=== PATIENT | male | born 1990 | race Caucasian/White ===

== ENCOUNTER 2024-02-27 15:19 | Emergency (ER) | payer MEDICAID, SELFPAY ==
--- NOTE | 2024-02-27 15:33 | EKG_ITS ---
[facility] Test Date: 2024-02-27 Pat Name: AQUILINO DOSHI Department: Room: - Gender: Male Manager Special Events: : 1990 Requested By: Lion Boyd Order Number: [id number] Reading MD: Lion Boyd Measurements Intervals [place] Rate: 90 P: 56 [place]: 172 QRS: 14 QRSD: 82 T: 22 QT: 347 QTc: 426 Interpretive Statements SINUS RHYTHM WITH SINUS ARRHYTHMIA MINIMAL VOLTAGE CRITERIA FOR LVH, CONSIDER NORMAL VARIANT [MEETS CRITERIA IN ONE OF: R(aVL), S(V1), R(V5), R(V5/V6)+S(V1)] No previous ECG available for comparison /store/S0/[id number]/ecg/[id number].pdf
[2024-02-27 15:36] VITALS: BMI 24.4
--- NOTE | 2024-02-27 15:39 | EDNOTE_ITS ---
ED General RME/HPI General Chief complaint: Syncope / Near Syncope Stated complaint: SYNCOPE Time Seen by Provider: 02/27/24 15:32 Arrival date/time: 02/27/24 15:19 CC: Syncope resulting in left wrist pain HPI patient was visiting family member upstairs in the hospital and does not recall what was happening after speaking to his mother on the phone. Hospital staff report the patient complete syncopal event. Patient is currently awake, stating that he is tired . Complaining of left wrist pain. Patient states he has no significant history no allergies other than Tylenol surgeries include appendectomy and tonsillectomy. Related Data Previous Rx's ?Medication ?Instructions ?Recorded tramadol 50 mg tablet (Ultram) 1 - 2 tab PO Q6HR PRN moderate 07/10/16 pain #15 tabs Allergies Allergy/AdvReac Type Severity Reaction Status Date / Time acetaminophen Allergy Unknown EYE Unverified 07/10/16 12:55 IRRITATION/ SWELLING aspirin Allergy Unknown EYES SWELL Unverified 07/10/16 12:55 ibuprofen Allergy Unknown Verified 07/10/16 12:55 Review of Systems Review of Systems Narrative Review of Systems: GEN: No fever, no chills, no weight loss EYES: No discharge, no visual changes, no pain HEENT: No ear pain, no congestion, no sore throat PULM: No shortness of breath, no cough, no congestion CV: No chest pain, no dyspnea on exertion, no palpitations GI: No nausea, no vomiting, no diarrhea, no pain, no constipation : No frequency, no urgency, no dysuria MUSC/SKEL: No joint pain, no back pain SKIN: No rash PSYCH: No hallucinations, no depression HEME/LYMPH: No easy bleeding or bruising tendencies NEURO: + weakness, no headache Past Medical History Social History SMOKING STATUS: Never smoker ED Exam Narrative Physical exam: [General: Not in any acute distress Head normocephalic HEENT: Eyes: Pupils are PERRLA EOMs are intact no injected conjunctiva mouth pink moist membranes uvula is midline swallow symmetrical all other subsystems of ATTR within acceptable limits Neck is supple nontender, no JVD no edema Chest equal chest rise nontender to palpation Respiratory: Clear to auscultation no wheezes crackles or rubs CV: Rate rhythm is regular no murmurs rubs or clicks Abdomen is soft nontender no masses positive bowel sounds all 4 quadrants Back: No CVA tenderness no spinous process tenderness from cervical spine thoracic and lumbar spine Skin: Intact no petechiae rash induration ulceration or crepitus Extremities: Left wrist: Full range of motion flexion extension with pain no significant edema gross abnormalities cap refill the digits less than 2 seconds. Moving all extremity against resistance cap refill less than 2 seconds neurosensory intact Neuro: Awake alert oriented x3 Glascow coma 15 no focal deficits] Course Quality Measures none Orders Category Date Time Status EKG (ED ONLY) *Do not use* NOW Care 02/27/24 15:33 Completed EKG (ED Only) Stat Exams 02/27/24 15:33 Draft XR wrist comp LT min 3V Stat Exams 02/27/24 16:31 Ordered CBC Stat Lab 02/27/24 15:45 Completed CMP [Comprehensive Metabolic Panel] Stat Lab 02/27/24 15:45 Completed KCL 10% Liq UDC 15 ML Med 02/27/24 16:31 Discontinued 40 meq GT X1 ONE MDM Patient data External records reviewed:: [facility] previous records Clinical information provided by:: patient Social determinants that could affect healthcare access:: none Patient has the following chronic illnesses:: None How is presenting disease/condition affected by chronic disease/condition?: u neffected by Evaluation data The following diagnostics were reviewed and interpreted by me:: lab results Lab and/or radiology exams considered but not ordered:: EKG performed at 1544 shows a ventricular rate of 90 HI interval 172 QRS of 82 QTc of 395 sinus rhythm. CBC shows no acute leukocytosis anemia thrombocytopenia CMP shows no acute electrolyte imbalances renal impairment transaminitis or T. bili elevation X-ray of the wrist as interpreted by me shows there is no acute fracture malalignment or dislocation Interpretation Summary: I suspect a vasovagal response. Patient be discharged home currently he is awake alert oriented with no specific complaints. Medications Medications considered but not ordered:: None Medication administrations:: Medication Administration History Discontinued Medications Potassium Chloride (Potassium Chloride 10% 20 Meq/15 Ml Udc) 40 meq GT X1 ONE Stop: 02/27/24 16:32 None Consultations Consultation(s) initiated? (list below): No Diagnosis Differential Diagnosis ED Complaint MDM: Vasovagal syncope wrist fracture electrolyte imbalance Most likely diagnosis given after review of the tests above:: Vasovagal syncope Admission Indicated Admission indicated?: not indicated Explain why admission is indicated or not indicated:: Stable for outpatient follow-up Admission Request Was there a request for admission?: No Disposition Plan Disposition Plan: Discharge Discharge Attestation Discharge Attestation: The patient and all family members were given an opportunity to ask questions and understood the discharge instructions. Discharge instructions specifically effects, indications for sooner follow up or return to the emergency department, and the expected course of current diagnosis. Patient condition: Stable Medical Decision Making Differential Diagnosis Differential Diagnosis: Vasovagal syncope wrist fracture electrolyte imbalance Lab Data 02/27/24 15:45 02/27/24 15:45 Labs: Lab Results 02/27/24 Range/Units 15:45 WBC 7.5 (3.8-10.6) Thou/mm3 RBC 5.92 H (4.50-5.90) Miln/mm3 Hgb 17.1 H (13.5-16.0) g/dL Hct 47.9 (41.0-53.0) % MCV 81 (80-100) fL MCH 28.9 (25.0-35.0) pg MCHC 35.7 (31.0-37.0) g/dl RDW Std Deviation 36.1 (35.1-43.9) fL Plt Count 208 (140-440) Thou/mm3 Neut % (Auto) 53 (37-80) % Lymph % (Auto) 39 (10-50) % [place] % (Auto) 6 (0-12) % Eos % (Auto) 1 (0-10) % Baso % (Auto) 0 (0-2.5) % Neut # (Auto) 4.0 (1.8-7.7) Thou/mm3 Lymph # (Auto) 2.9 (1.0-4.8) Thou/mm3 [place] # (Auto) 0.5 (0.0-0.8) Thou/mm3 Eos # (Auto) 0.1 (0.0-0.5) Thou/mm3 Baso # (Auto) 0.0 (0.0-0.2) Thou/mm3 Immature Gran # (Auto) 0.02 H (0.00-0.00) Thou/mm3 Absolute Nucleated RBC 0.00 (0.00-0.00) Thou/mm3 Immature Gran % 0 (0-0) % Nucleated RBC % 0 (0) /100 WBC Sodium 136 (136-145) mMol/L Potassium 3.3 L (3.4-5.1) mMol/L Chloride 102 (98-107) mMol/L Carbon Dioxide 24.6 (20.0-31.0) mMol/L Anion Gap 9 (7-16) BUN 11 (9-23) mg/dL Creatinine 1.1 (0.6-1.3) mg/dL Estim Creat Clear Calc 103.9 (>60) mL/min eGFR > 60 (60 - ) See Note BUN/Creatinine Ratio 10 L (12-20) Ratio Glucose 101 (74-106) mg/dL Calculated Osmolality 271 L (275-295) Calcium 10.4 (8.3-10.6) mg/dL Corrected Calcium 10.4 H (8.5-10.1) mg/dL Total Bilirubin 1.2 (0.3-1.2) mg/dL AST 25 (0-34) U/L ALT 30 (10-49) U/L Alkaline Phosphatase 125 H (46-116) U/L Total Protein 7.9 (5.7-8.2) gm/dL Albumin 5.0 (3.5-5.0) gm/dL Globulin 2.9 (2.3-3.5) gm/dL Albumin/Globulin Ratio 1.7 (1.2-2.2) Discharge Plan Plan Patient Disposition: HOME (Self Care) Patient condition on transfer: Stable Prescriptions/Referrals Prescriptions/Med Rec: No Action tramadol [Ultram] 50 MG tablet 1 - 2 tab PO Q6HR PRN (Reason: moderate pain) Qty: 15 0RF Rx Instructions: FOR PAIN, NOT TO EXCEED 8 TABS IN 24 HRS Problem List Clinical Impression: Syncope, vasovagal Patient/Caregiver Discharge Instructions Education Materials: ED Fainting, Vagal Reaction Additional Instructions: Rest drink plenty of fluids follow-up with your primary care provider. Print Language: Italian Stand Alone Forms: Niya Award Info., Patient Portal Info Letter, Work/School Release PA/SUPPLIER ENGINEER Supervising Physician PA/SUPPLIER ENGINEER Supervising Physician: Lewis Graves ENP
[2024-02-27 16:22] LABS: Basophils % (Auto) 0 % (0-2.5); Eosinophils # (Auto) 0.1 Thou/mm3 (0.0-0.5); Eosinophils % (Auto) 1 % (0-10); Hematocrit 47.9 % (41.0-53.0); Hemoglobin 17.1 g/dL (13.5-16.0); Immature Granulocytes % (Auto) 0 % (0-0); Immature Granulocytes Auto 0.02 Thou/mm3 (0.00-0.00); Lymphocytes # (Auto) 2.9 Thou/mm3 (1.0-4.8); Lymphocytes % (Auto) 39 % (10-50); Mean Corpuscular HGB Conc 35.7 g/dl (31.0-37.0); Mean Corpuscular Hemoglobin 28.9 pg (25.0-35.0); Mean Corpuscular Volume 81 fL (80-100); Monocytes # (Auto) 0.5 Thou/mm3 (0.0-0.8); Monocytes % (Auto) 6 % (0-12); Neutrophils % (Auto) 53 % (37-80); Nucleated Red Blood Cell % 0 /100 WBC (0); Platelet Count 208 Thou/mm3 (140-440); RDW Standard Deviation 36.1 fL (35.1-43.9); Red Blood Count 5.92 Miln/mm3 (4.50-5.90); White Blood Count 7.5 Thou/mm3 (3.8-10.6)
[2024-02-27 16:27] LABS: Alanine Aminotransferase 30 U/L (10-49); Albumin/Globulin Ratio 1.7 (1.2-2.2); Alkaline Phosphatase 125 U/L (46-116); Anion Gap 9 (7-16); Aspartate Amino Transferase 25 U/L (0-34); BUN/Creatinine Ratio 10 Ratio (12-20); Bilirubin,Total 1.2 mg/dL (0.3-1.2); Blood Urea Nitrogen 11 mg/dL (9-23); Calcium 10.4 mg/dL (8.3-10.6); Calcium (Corrected) 10.4 mg/dL (8.5-10.1); Carbon Dioxide 24.6 mMol/L (20.0-31.0); Chloride 102 mMol/L (98-107); Creatinine (Component) 1.1 mg/dL (0.6-1.3); Estimated Creatinine Clearance 103.9 mL/min (>60); Globulin 2.9 gm/dL (2.3-3.5); Glucose 101 mg/dL (74-106); Osmolality,Calculated 271 (275-295); Potassium 3.3 mMol/L (3.4-5.1); Sodium 136 mMol/L (136-145); Total Protein 7.9 gm/dL (5.7-8.2); eGFR > 60 See Note
--- NOTE | 2024-02-27 16:31 | XR_ITS ---
Examination: Wrist, left 3 views Technique: Wrist AP, oblique, lateral 3 views Date and time of exam: February 27, 2024 at 1646 hours INDICATIONS: Patient fell today with injury to the wrist, wrist pain. FINDINGS: Large sclerotic focus probably benign in the capitate No acute fracture No dislocation IMPRESSION: No acute fracture Recommend 6 month follow-up plain films left wrist to document stability of sclerotic focus in the capitate
== END 2024-02-27 17:02 | disposition home or self-care (01) ==
LOC: SERX 17:04
PROVIDERS: Registered Nurse General Practice; Emergency Provider Emergency Medicine
DX: R55 Syncope and collapse (principal); M25.532 Pain in left wrist
CPT/HCPCS: 36415; 73110; 80053; 85025; 93005; 99283